=== PATIENT | female | born 1975 | race Caucasian/White ===

== ENCOUNTER 2020-10-12 12:39 | Outpatient (REF) | payer MEDICAID, SELFPAY | END 2020-10-12 12:40 | disposition home or self-care (01) | LOC: HO.LAB 12:39 | PROVIDERS: PCP Family Medicine; Visit Provider Family Medicine | DX: F19.10 Other psychoactive substance abuse, uncomplicated (principal) | CPT/HCPCS: 87040 ==

== ENCOUNTER 2020-10-15 22:03 | Emergency (ER) | payer MEDICAID, SELFPAY ==
[2020-10-15 22:06] VITALS: BP 146/65; PULSE 91; RESP 16; TEMP 36.6; O2SAT 97; BMI 25.8
--- NOTE | 2020-10-15 23:49 | ED_ITS ---
HPI - General Adult General Chief complaint: General Medical Stated complaint: Abnormal labs Time Seen by Provider: 10/15/20 22:23 Source: patient Mode of arrival: ambulatory Limitations: no limitations History of Present Illness HPI narrative: Patient comes to the emergency room requesting a workup for endocarditis. Patient states recently she was seen by her primary care physician, she was told that she has a new murmur. Patient is an active IV drug user. Patient states that she does not have any chest pain, no shortness of breath, no fever, although complaining of occasional chills. Patient states that she was also told that she may have lupus. Patient states that she had a butterfly like rash on her face, and is being worked up for lupus. At this time, her main concern is that she may have endocarditis. Patient states that the outpatient workup started, however due to insurance issues she was told by her primary care physician to come to the emergency room for workup. patient is currently taking doxycycline. Patient was diagnosed with an abscess a few weeks ago, did not finish the entire course of antibiotics, and had leftover doxycycline. Patient started a few days the old prescription of doxycycline, states her abscesses are improving and has not seen any drainage Related Data Previous Rx's Medication Instructions Recorded cephalexin [Keflex] 500 mg PO BID #20 cap 10/16/20 doxycycline hyclate 100 mg PO BID #20 cap 10/16/20 Allergies Allergy/AdvReac Type Severity Reaction Status Date / Time Penicillins [PENICILLINS] Allergy Intermediate HIVES Unverified 07/26/20 18:47 penicillin V Allergy Unknown rash Verified 03/27/16 00:00 sulfamethoxazole Allergy Unknown VOMITING Unverified 07/26/20 18:47 [From BACTRIM] trimethoprim [From BACTRIM] Allergy Unknown VOMITING Unverified 07/26/20 18:47 Review of Systems Review of Systems: Constitutional : No Weight loss, No Fever, No Chills, No Night Sweats, No Fatigue, No Malaise ENT/Mouth : No Hearing loss, No Ear Pain, No Nasal Congestion, No Sinus Pain, No Hoarseness, No sore throat, No Rhinorrhea, No Swallowing Difficulty Eyes: No Eye Pain, No Swelling, No Redness, No Foreign Body, No Discharge, No Vision Changes Cardiovascular : No Chest Pain, No SOB, No Dyspnea on Exertion, No Orthopnea, No Edema, No Palpitations, complaining of a new heart murmur Respiratory : No Cough, No Sputum, No Wheezing, No Smoke Exposure, No Dyspnea Gastrointestinal : No Nausea, No Vomiting, No Diarrhea, No Constipation, No abdominal Pain, No Hematochezia, No Melena Genitourinary : no irregular bleeding, No Dysuria, No Urinary Frequency, No Hematuria, No Urinary Incontinence, No Urgency, No Flank Pain, No Urinary Flow Changes, No Hesitancy Musculoskeletal : No joint pain, No Myalgias, No Joint Swelling Skin : multiple old and new skin lesions in upper and lower extremities Neuro : No Weakness, No Numbness, No Paresthesias, No Loss of Consciousness, No Dizziness, No Headache Psych : No Anxiety/Panic, No Depression, No SI/HI/AH/VH, No Social Issues, Heme/Lymph: No Bruising, No Bleeding,No Lymphadenopathy Endocrine : No Polyuria, No Polydipsia, No Temperature Intolerance PMFSH Past Medical History Medical History Hepatitis C IV drug user Surgical History (Updated 10/15/20 @ 22:08 by Luis Enrique Melendez) Hx of cholecystectomy Social History Social History Advance Directives: No Physical Exam Vital Signs: Vital Signs: Last Vital Signs Temp 97.9 F 10/16/20 02:50 Pulse 70 10/16/20 02:50 Resp 16 10/16/20 02:50 BP 127/70 10/16/20 02:50 Pulse Ox 98 10/16/20 02:50 Body Mass Index 25.8 Appearance: Alert. Oriented X3. No acute distress. Eyes: Pupils equal, round and reactive to light. ENT: Pharynx normal. Neck: Normal inspection. Neck supple. No lymph nodes noted. No crepitus CVS: Normal heart rate and rhythm. Pulses normal. Normal S1 and S2, very soft systolic murmur, barely noticeable. Respiratory: No respiratory distress. Breath sounds normal. No Wheezing. No rales Abdomen: Soft and nontender. No rigidity. No distention. good BS x4 Skin: Skin warm and dry. Multiple skin lesions in upper and lower extremities, several scratches in size, no defined abscesses that could be drained, no pus oozing of any of the skin lesions Extremities: No lower extremity edema. No lower extremity edema. No Lacerations. No Rash Neuro: Oriented X 3. No motor deficit. No sensory deficit. Moving all extermities. No slurred speech. Course Course Course Narrative: I discussed the labs with our hospitalist, at this time, patient does not have an elevated white blood cell count, does not have any fever, no symptoms. Echocardiogram can be set up as an outpatient through the patient is primary care physician. I offered a full course of antibiotics for the patient's abscesses, as mentioned above, none of them need to be drained at this time. Patient agreed with plan. I also discussed with the patient, that if her blood cultures return positive, she will need to return to the hospital for IV antibiotics, possible admission Medical Decision Making Lab Data Result diagrams: 10/16/20 02:00 10/16/20 02:00 Labs: Lab Results 10/16/20 10/16/20 10/16/20 Range/Units 02:00 02:00 02:00 WBC 7.8 (4.8-10.8) X10*3/uL RBC 4.36 (4.20-5.50) X10*6/uL Hgb 12.3 (12.0-16.0) g/dl Hct 37.4 (37-47) % MCV 85.8 (80-98) fL MCH 28.2 (27.0-33.0) pg MCHC 32.9 (31.0-35.0) g/dl RDW 13.2 (11.0-16.0) % Plt Count 311 (160-400) X10*3/uL MPV 8.1 L (9.4-12.3) fL Immature Gran % (Auto) 0.3 (0.0-0.4) % Neut % (Auto) 61.6 (45-73) % Lymph % (Auto) 31.2 (20-40) % [place] % (Auto) 5.2 (2-11) % Eos % (Auto) 1.3 (0-4) % Baso % (Auto) 0.4 (0-2) % Lymph # (Auto) 2.4 (1.2-4.9) X10*3/uL [place] # (Auto) 0.4 (0.1-1.2) X10*3/uL Eos # (Auto) 0.1 (0.0-0.4) X10*3/uL Baso # (Auto) 0.0 (0.0-0.2) X10*3/uL Abs Immat Gran (auto) 0.02 (0.00-0.03) X10*3/uL Absolute Neuts (auto) 4.8 (2.0-8.3) X10*3/uL Absolute Nucleated RBC 0.000 (0.0-0.012) X10*3/uL Nucleated RBC % (auto) 0.0 (0.0-0.2) /100WBC ESR (0-20) MM/HR Sodium 138 (135-145) mmol/L Potassium 4.0 (3.3-5.1) mmol/l Chloride 101 (96-108) mmol/L Carbon Dioxide 25 (22-29) mmol/L Anion Gap 16 (12-20) BUN 7 L (9-16) mg/dL Creatinine 0.73 (0.5-1.4) mg/dL Estim Creat Clear Calc 100.3 Estimated GFR > 60 Random Glucose 115 (60-115) mg/dL Lactic Acid 1.2 (0.5-2.0) mmol/L Calcium 9.1 (8.4-10.2) mg/dL Total Bilirubin 0.4 (0.0-1.0) mg/dL Direct Bilirubin < 0.2 (0.0-0.5) mg/dL AST 25 (5-31) U/L ALT 29 (0-31) U/L Alkaline Phosphatase 136 H (39-117) U/L C-Reactive Protein (< or = 0.50) mg/dL Total Protein 7.6 (6.5-8.0) g/dL Albumin 3.9 (3.5-5.0) g/dL 10/16/20 10/16/20 Range/Units 02:00 02:00 WBC (4.8-10.8) X10*3/uL RBC (4.20-5.50) X10*6/uL Hgb (12.0-16.0) g/dl Hct (37-47) % MCV (80-98) fL MCH (27.0-33.0) pg MCHC (31.0-35.0) g/dl RDW (11.0-16.0) % Plt Count (160-400) X10*3/uL MPV (9.4-12.3) fL Immature Gran % (Auto) (0.0-0.4) % Neut % (Auto) (45-73) % Lymph % (Auto) (20-40) % [place] % (Auto) (2-11) % Eos % (Auto) (0-4) % Baso % (Auto) (0-2) % Lymph # (Auto) (1.2-4.9) X10*3/uL [place] # (Auto) (0.1-1.2) X10*3/uL Eos # (Auto) (0.0-0.4) X10*3/uL Baso # (Auto) (0.0-0.2) X10*3/uL Abs Immat Gran (auto) (0.00-0.03) X10*3/uL Absolute Neuts (auto) (2.0-8.3) X10*3/uL Absolute Nucleated RBC (0.0-0.012) X10*3/uL Nucleated RBC % (auto) (0.0-0.2) /100WBC ESR 31 H (0-20) MM/HR Sodium (135-145) mmol/L Potassium (3.3-5.1) mmol/l Chloride (96-108) mmol/L Carbon Dioxide (22-29) mmol/L Anion Gap (12-20) BUN (9-16) mg/dL Creatinine (0.5-1.4) mg/dL Estim Creat Clear Calc Estimated GFR Random Glucose (60-115) mg/dL Lactic Acid (0.5-2.0) mmol/L Calcium (8.4-10.2) mg/dL Total Bilirubin (0.0-1.0) mg/dL Direct Bilirubin (0.0-0.5) mg/dL AST (5-31) U/L ALT (0-31) U/L Alkaline Phosphatase (39-117) U/L C-Reactive Protein 1.24 H (< or = 0.50) mg/dL Total Protein (6.5-8.0) g/dL Albumin (3.5-5.0) g/dL Discharge Plan Discharge Clinical Impression: Cardiac murmur Abscess of skin Qualifiers: Site of cutaneous abscess: unspecified site Qualified Code(s): L02.91 - Cutaneous abscess, unspecified Patient Disposition: Home, Self-Care Instructions: Heart Murmur (ED) Additional Instructions: you were seen today at [facility] for a new cardiac murmur. At this time, your lab work does not show any acute infection. Blood cultures are pending. You will need to follow-up with her primary care physician to be referred for an echocardiogram. Your blood cultures are pending. If you receive a phone call and they tell you that your blood culture is positive, please return to the emergency room Prescriptions: New doxycycline hyclate 100 mg capsule 100 mg PO BID Qty: 20 RF: 0 cephalexin [Keflex] 500 mg capsule 500 mg PO BID Qty: 20 RF: 0
--- NOTE | 2020-10-16 00:47 | PC.NURSE ---
patient returning to the emergency department, stating she left around 2250 and returned about 30 minutes ago to the waiting room. originally showing staff members a visitor wrist band then showing a patient one within a few minutes asking when her room would be ready. patient brought back to a room to be seen by provider.
--- NOTE | 2020-10-16 01:10 | ED.GENADULT ---
HPI - General Adult General Chief complaint: General Medical Stated complaint: Abnormal labs Time Seen by Provider: 10/15/20 22:23 Source: patient Mode of arrival: ambulatory Limitations: no limitations History of Present Illness HPI narrative: Patient comes emergency room requesting a workup for endocarditis. Patient states that at this time she has no fever, complaining of occasional chills. Patient states that her primary care physician informed the patient that she has a new murmur. The patient had an outpatient lab work done, however she was informed that due to her insurance it will take a longer time than usual, unclear history. Patient concerned with endocarditis. Patient also requesting a workup for lupus, patient states she has had a butterfly like rash on her face. patient states she has been having chills, no fever, no chest pain, no shortness of breath. patient is an active IV drug user. Patient admits to using heroin, injected earlier in the afternoon. Patient states that she is currently taking doxycycline for a skin abscess. Patient states a few weeks ago she was diagnosed with cellulitis /abscess, she was given doxycycline but she did not finish the entire course, so she had doxycycline left over from her previous prescription. complaint: Concerns of endocarditis Related Data Allergies Allergy/AdvReac Type Severity Reaction Status Date / Time Penicillins [PENICILLINS] Allergy Intermediate HIVES Unverified 07/26/20 18:47 penicillin V Allergy Unknown rash Verified 03/27/16 00:00 sulfamethoxazole Allergy Unknown VOMITING Unverified 07/26/20 18:47 [From BACTRIM] trimethoprim [From BACTRIM] Allergy Unknown VOMITING Unverified 07/26/20 18:47 PMFSH Past Medical History Medical History (Updated 10/15/20 @ 22:08 by Luis Enrique Melendez) Hepatitis C Surgical History (Updated 10/15/20 @ 22:08 by Luis Enrique Melendez) Hx of cholecystectomy Social History Social History Advance Directives: No Physical Exam Vital Signs: Vital Signs: Last Vital Signs Temp 98 F 10/15/20 22:06 Pulse 91 10/15/20 22:06 Resp 16 10/15/20 22:06 BP 146/65 H 10/15/20 22:06 Pulse Ox 97 10/15/20 22:06 Body Mass Index 25.8 Discharge Plan Discharge Patient Disposition: Left Without Being Seen
--- NOTE | 2020-10-16 02:05 | PC.NURSE ---
BLOOD CULTURES ARE VENOUS. WHEN AMENDING ON THE WORKLIST, COMPUTER STARTED GLITCHING. AND THEN ALL OF A SUDDEN THE AMENDED ORDER SAID ARTERIAL AND I WAS NOT ABLE TO CHANGE IT TO VENOUS. CALLED LAB TO MAKE THEM AWARE.
[2020-10-16 02:07] LABS: Basophils Percent Auto 0.4 % (0-2); Eosinophils Absolute Auto 0.1 X10*3/uL (0.0-0.4); Eosinophils Percent Auto 1.3 % (0-4); Hematocrit 37.4 % (37-47); Hemoglobin 12.3 g/dl (12.0-16.0); Imm Gran Abs Auto 0.02 X10*3/uL (0.00-0.03); Imm Gran Pct Auto 0.3 % (0.0-0.4); Lymphocytes Absolute Auto 2.4 X10*3/uL (1.2-4.9); Lymphocytes Percent Auto 31.2 % (20-40); MANUAL DIFF FLAG NO; Mean Corpuscular HGB Conc 32.9 g/dl (31.0-35.0); Mean Corpuscular Hemoglobin 28.2 pg (27.0-33.0); Mean Corpuscular Volume 85.8 fL (80-98); Mean Platelet Volume 8.1 fL (9.4-12.3); Monocytes Absolute Auto 0.4 X10*3/uL (0.1-1.2); Monocytes Percent Auto 5.2 % (2-11); Neutrophils Absolute Auto 4.8 X10*3/uL (2.0-8.3); Neutrophils Percent Auto 61.6 % (45-73); Platelet Count 311 X10*3/uL (160-400); Red Blood Count 4.36 X10*6/uL (4.20-5.50); Red Cell Distribution Width 13.2 % (11.0-16.0); White Blood Count 7.8 X10*3/uL (4.8-10.8)
[2020-10-16 02:31] LABS: Lactic Acid 1.2 mmol/L (0.5-2.0)
[2020-10-16 02:33] LABS: C Reactive Protein 1.24 mg/dL (< or = 0.50)
[2020-10-16 02:37] LABS: Alanine Aminotransferase 29 U/L (0-31); Albumin Level 3.9 g/dL (3.5-5.0); Alkaline Phosphatase 136 U/L (39-117); Anion Gap 16 (12-20); Aspartate Amino Transferase 25 U/L (5-31); Bilirubin Direct < 0.2 mg/dL (0.0-0.5); Bilirubin Total 0.4 mg/dL (0.0-1.0); Blood Urea Nitrogen 7 mg/dL (9-16); Calcium 9.1 mg/dL (8.4-10.2); Carbon Dioxide 25 mmol/L (22-29); Chloride 101 mmol/L (96-108); Creatinine Clr Calc Pharmacy 100.3; Estimated Glomerular Filt Rate > 60; Glucose Random 115 mg/dL (60-115); Sodium 138 mmol/L (135-145); Total Protein 7.6 g/dL (6.5-8.0)
[2020-10-16 02:43] LABS: Erythrocyte Sedimentation Rate 31 MM/HR (0-20)
[2020-10-16 02:50] VITALS: BP 127/70; PULSE 70; RESP 16; TEMP 36.6; O2SAT 98
[2020-10-16 03:30] LABS: Appearance Urine CLEAR; Color Urine YELLOW; Glucose Urine UA NEG (NEG); Leukocyte Esterase Urine NEG (NEG); Nitrite Urine NEG (NEG); PH 7.5 (5.0-8.0); Specific Gravity - Urine 1.015 (1.005-1.025); UACC Culture Trigger NO; Urine Blood NEG (NEG); Urine Ketones NEG (NEG); Urine Protein NEG (NEG-TRACE)
[2020-10-16 03:31] LABS: UPreg QC Valid YES; Urine Pregnancy NEGATIVE (NEGATIVE)
[2020-10-16 03:43] LABS: Amphetamine Screen Urine Not Detected (Not Detect); Barbiturates, Urine Not Detected (Not Detect); Benzodiazepines Screen Urine Not Detected (Not Detect); Cannabinoid Screen Urine Not Detected (Not Detect); Cocaine Screen Urine Not Detected (Not Detect); Opiate Screen Urine POSITIVE (Not Detect); Phencyclidine Screen Urine Not Detected (Not Detect)
== END 2020-10-16 04:20 | disposition home or self-care (01) ==
PROVIDERS: Emergency Provider Emergency Medicine
DX: L02.91 Cutaneous abscess, unspecified (principal); R01.1 Cardiac murmur, unspecified; F11.10 Opioid abuse, uncomplicated; Z79.899 Other long term (current) drug therapy
CPT/HCPCS: 36415; 80048; 80076; 80307; 81003; 81025; 83605; 85025; 85652; 86140; 87040; 96374; 99284

== ENCOUNTER 2021-01-19 22:39 | Emergency (ER) | payer MEDICAID, SELFPAY ==
[2021-01-19 22:51] VITALS: BP 160/101; PULSE 114; RESP 20; O2SAT 100; BMI 24.2
--- NOTE | 2021-01-19 23:44 | ED.GENADULT ---
HPI - General Adult General Chief complaint: Skin/Abscess/Foreign Body Stated complaint: Abdominal pain Time Seen by Provider: 01/19/21 22:44 Source: patient Mode of arrival: ambulatory History of Present Illness HPI narrative: This is a 45-year-old female who presents with a few days of worsening itching and concerns of bugs on her bilateral upper extremities but denies any associated fevers, chills. Related Data Previous Rx's Medication Instructions Recorded cephalexin [Keflex] 500 mg PO BID #20 cap 10/16/20 doxycycline hyclate 100 mg PO BID #20 cap 10/16/20 permethrin 1 appl TOPICAL Q14D #60 g 01/19/21 Allergies Allergy/AdvReac Type Severity Reaction Status Date / Time Penicillins [PENICILLINS] Allergy Intermediate HIVES Unverified 07/26/20 18:47 penicillin V Allergy Unknown rash Verified 03/27/16 00:00 sulfamethoxazole Allergy Unknown VOMITING Unverified 07/26/20 18:47 [From BACTRIM] trimethoprim [From BACTRIM] Allergy Unknown VOMITING Unverified 07/26/20 18:47 Review of Systems Review of Systems: Pertinent positives and negatives as stated in HPI and 10 point review of systems is otherwise negative. PMFSH Past Medical History Source: nursing notes reviewed Medical History Hepatitis C IV drug user Surgical History Hx of cholecystectomy Social History Social History Alcohol intake: never Smoking Status: Current every day smoker Use of substances other than those prescribed or required for medical reasons: No Advance Directives: No Advance Directives Information Provided: Yes Physical Exam Vital Signs: Vital Signs: Last Vital Signs Pulse 114 H 01/19/21 22:51 Resp 20 01/19/21 22:51 BP 160/101 H 01/19/21 22:51 Pulse Ox 100 01/19/21 22:51 Body Mass Index 24.2 VITAL SIGNS: Reviewed. GENERAL: Well developed, well nourished, in no acute distress. HEAD: Normocephalic/atraumatic, EYES: PERRLA, EOMI EARS: Ext canals without abnormality, TMs non-bulging and non-erythematous NOSE: Nares patent bilateral OROPHARYNX: no oral lesions noted, posterior pharynx clear NECK: Supple, no adenopathy LUNGS: Normal breath sounds. No adventitious sounds or accessory muscle use. SpO2<100> CARDIOVASCULAR: Regular rate and rhythm without noted murmurs ABDOMEN: Soft, non-tender, non-distended with bowel sounds. MUSCULOSKELETAL: No tenderness, deformities, or effusions noted on gross inspection. EXTREMITIES: No cyanosis, clubbing or edema. SKIN: Inspection of the skin reveals multiple areas healing scabs to include any intrigenous areas of bilateral hands, no abscesses noted on either bilateral upper extremity or abdominal wall. NEUROLOGIC: Alert and oriented x 4. Course Course Course Narrative: This is a 45-year-old female with possible scabies versus skin picking secondary to drug use. Provided patient with a dose of Benadryl as well as a prescription for permethrin. Patient was encouraged to return if her symptoms did not improve. Discharge Plan Discharge Clinical Impression: IV drug user Insect bites Qualifiers: Encounter type: initial encounter Site of insect bite: unspecified site Qualified Code(s): W57.XXXA - Bitten or stung by nonvenomous insect and other nonvenomous arthropods, initial encounter Patient Disposition: Home, Self-Care Instructions: Insect Bite or Sting (ED), Scabies (ED) Additional Instructions: Return to the emergency department if you experience any acute worsening of your symptoms. Prescriptions: New permethrin 5 % cream 1 appl topical Q14D Qty: 60 RF: 0 No Action doxycycline hyclate 100 mg capsule 100 mg PO BID Qty: 20 RF: 0 cephalexin [Keflex] 500 mg capsule 500 mg PO BID Qty: 20 RF: 0
[2021-01-19] MEDS: diphenhydrAMINE HCL 25 MG TABLET 50 MG PO (23:59)
== END 2021-01-19 23:56 | disposition home or self-care (01) ==
PROVIDERS: Emergency Provider Student in an Organized Health Care Education/Training Program
DX: F11.90 Opioid use, unspecified, uncomplicated (principal); S60.562A Insect bite (nonvenomous) of left hand, initial encounter; S60.561A Insect bite (nonvenomous) of right hand, initial encounter; W57.XXXA Bitten or stung by nonvenomous insect and other nonvenomous arthropods, initial encounter; F17.200 Nicotine dependence, unspecified, uncomplicated; Y93.9 Activity, unspecified; Y92.039 Unspecified place in apartment as the place of occurrence of the external cause; Y99.9 Unspecified external cause status; Z86.19 Personal history of other infectious and parasitic diseases; Z90.49 Acquired absence of other specified parts of digestive tract
CPT/HCPCS: 99283; 99284; Q0163

== ENCOUNTER 2021-04-11 21:20 | Emergency (ER) | payer MEDICAID, SELFPAY ==
--- NOTE | ~2021-04-11 | CT_ITS ---
EXAMINATION: CT SOFT TISSUE NECK WITH CONTRAST CLINICAL INFORMATION: Swelling/pain right ear and along sternocleidomastoid and TMJ COMPARISON: None TECHNIQUE: Following the intravenous administration of 60 mL of Omnipaque 350 intravenous contrast, helical imaging was performed in the axial plane with generation of coronal and sagittal reformatted images. This CT examination was performed using dose optimization techniques as appropriate, variously including the following: *Automated exposure control *Adjustment of mA and/or kV according to patient size (this includes techniques or standardized protocols for targeted exams where dose is matched to indication/reason for exam; i.e. extremities or head) *Use of iterative reconstruction technique DLP: 392 mGy-cm FINDINGS: There is soft tissue thickening along the right external auditory canal with adjacent subcutaneous fat stranding. Small amount of fluid noted in the right middle ear cavity. Mastoid air cells are well-aerated. There are a few prominent upper right cervical lymph nodes which may be reactive in this setting. There is subtle haziness of the right parapharyngeal fat. The parotid glands are homogeneous in attenuation. The submandibular glands are normal. No contour abnormality or pathologic enhancement is seen within the oral cavity or pharyngeal mucosal space. The laryngeal structures are normal. The parapharyngeal fat is preserved. The carotid sheath vasculature opacify normally. No extra mucosal soft tissue mass or fluid collection is seen. No retropharyngeal fluid collection is seen. The thyroid gland is unremarkable. Small right-sided tracheal diverticulum is noted. The lung apices are clear. The visualized portions of the paranasal sinuses are well-aerated. The temporomandibular joints are normal. No osseous abnormalities are seen. The imaged portions of the brain parenchyma are unremarkable. CT/CT soft tissue neck w con IMPRESSION: Soft tissue thickening along the right external auditory canal, suspicious for otitis externa. Mastoid air cells are well-aerated. Small amount of fluid noted in the middle ear cavity. Few prominent upper right cervical lymph nodes are favored to be reactive in this setting.
[2021-04-11 21:31] VITALS: BP 145/92; PULSE 88; RESP 18; TEMP 36.7; O2SAT 100; BMI 22.6
--- NOTE | 2021-04-11 23:37 | ED.EAR ---
HPI - Ear Problem General Chief complaint: Ear Problems Stated complaint: ear pain Time Seen by Provider: 04/12/21 00:19 Related Data Previous Rx's Medication Instructions Recorded cephalexin [Keflex] 500 mg PO BID #20 cap 10/16/20 doxycycline hyclate 100 mg PO BID #20 cap 10/16/20 permethrin 1 appl TOPICAL Q14D #60 g 01/19/21 Allergies Allergy/AdvReac Type Severity Reaction Status Date / Time Penicillins [PENICILLINS] Allergy Intermediate HIVES Verified 04/11/21 21:30 penicillin V Allergy Unknown rash Verified 04/11/21 21:30 sulfamethoxazole Allergy Unknown VOMITING Verified 04/11/21 21:30 [From BACTRIM] trimethoprim [From BACTRIM] Allergy Unknown VOMITING Verified 04/11/21 21:30 PMFSH Past Medical History Medical History Hepatitis C IV drug user Surgical History Hx of cholecystectomy Social History Social History Alcohol intake: never Patient : No Physical Exam Vital Signs: Vital Signs: Last Vital Signs Temp 98.0 F 04/11/21 21:31 Pulse 88 04/11/21 21:31 Resp 18 04/11/21 21:31 BP 145/92 H 04/11/21 21:31 Pulse Ox 100 04/11/21 21:31 Body Mass Index 22.6 Discharge Plan Discharge Prescriptions: No Action permethrin 5 % cream 1 appl topical Q14D Qty: 60 RF: 0 doxycycline hyclate 100 mg capsule 100 mg PO BID Qty: 20 RF: 0 cephalexin [Keflex] 500 mg capsule 500 mg PO BID Qty: 20 RF: 0
--- NOTE | 2021-04-12 00:26 | PC.NURSE ---
Pt very lethargic resting on stretcher but easily arousable to verbal stimuli. Pt admits to heroin use, denies other drugs and ETOH. Pt oriented x 4.
[2021-04-12 01:29] LABS: MANUAL DIFF FLAG NO
[2021-04-12 01:30] LABS: Basophils Percent Auto 0.1 % (0-2); Eosinophils Percent Auto 0.5 % (0-4); Hematocrit 34.8 % (37-47); Hemoglobin 11.7 g/dl (12.0-16.0); Imm Gran Abs Auto 0.02 X10*3/uL (0.00-0.03); Imm Gran Pct Auto 0.3 % (0.0-0.4); Lymphocytes Absolute Auto 1.2 X10*3/uL (1.2-4.9); Lymphocytes Percent Auto 15.2 % (20-40); Mean Corpuscular HGB Conc 33.6 g/dl (31.0-35.0); Mean Corpuscular Hemoglobin 28.8 pg (27.0-33.0); Mean Corpuscular Volume 85.7 fL (80-98); Mean Platelet Volume 8.9 fL (9.4-12.3); Monocytes Absolute Auto 0.4 X10*3/uL (0.1-1.2); Monocytes Percent Auto 5.1 % (2-11); Neutrophils Absolute Auto 6.2 X10*3/uL (2.0-8.3); Neutrophils Percent Auto 78.8 % (45-73); Platelet Count 240 X10*3/uL (160-400); Red Blood Count 4.06 X10*6/uL (4.20-5.50); Red Cell Distribution Width 13.8 % (11.0-16.0); White Blood Count 7.8 X10*3/uL (4.8-10.8)
[2021-04-12 01:50] LABS: Lactic Acid 0.9 mmol/L (0.5-2.0)
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
[2021-04-12 02:21] LABS: Alanine Aminotransferase 109 U/L (0-31); Albumin Level 4.2 g/dL (3.5-5.0); Alkaline Phosphatase 234 U/L (39-117); Anion Gap 16 (12-20); Aspartate Amino Transferase 88 U/L (5-31); Bilirubin Total 0.6 mg/dL (0.0-1.0); Blood Urea Nitrogen 8 mg/dL (9-16); Calcium 9.1 mg/dL (8.4-10.2); Carbon Dioxide 26 mmol/L (22-29); Chloride 100 mmol/L (96-108); Creatinine Clr Calc Pharmacy 96.3; Estimated Glomerular Filt Rate > 60; Glucose Random 105 mg/dL (60-115); Potassium 4.6 mmol/L (3.3-5.1); Sodium 137 mmol/L (135-145); Total Protein 7.5 g/dL (6.5-8.0)
[2021-04-12 03:11] VITALS: BP 98/58; PULSE 70; RESP 14; O2SAT 99
[2021-04-12] MEDS: cefTRIAXone sodium 1 GM in 0.9 % Sodium Chloride 50 ML IV (03:57)
[2021-04-12 05:00] VITALS: BP 110/70; PULSE 78; RESP 18; O2SAT 98
[2021-04-12] MEDS: Ketorolac Tromethamine 15 MG/ML VIAL IVPUSH (05:00)
[2021-04-12] MEDS: Acetaminophen 325 MG TABLET 975 MG PO (05:01)
== END 2021-04-12 05:11 | disposition home or self-care (01) ==
PROVIDERS: Emergency Provider Student in an Organized Health Care Education/Training Program
DX: H60.91 Unspecified otitis externa, right ear (principal); H92.01 Otalgia, right ear; F19.10 Other psychoactive substance abuse, uncomplicated; R53.83 Other fatigue; B19.20 Unspecified viral hepatitis C without hepatic coma
CPT/HCPCS: 36415; 70491; 80053; 83605; 85025; 87040; 96365; 96374; 96375; 99284; J0696; J1885

== ENCOUNTER 2023-01-09 14:18 | Inpatient (IN) | payer MEDICAID, OTHER, SELFPAY ==
[2023-01-09 14:34] VITALS: BP 122/77; BP 132/92; PULSE 102; PULSE 98; RESP 18; TEMP 36.4; O2SAT 96; BMI 25.8
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
--- NOTE | 2023-01-09 14:42 | PC.NURSE ---
Attempted to verify methadone dose at [facility] in [facility]. . Message left for return call.
--- NOTE | 2023-01-09 14:56 | PC.NURSE ---
Call back from Midwife Practitioner: Odette Betts Pt got 30mg PO of methadone at 1014am on 01/09/23.
[2023-01-09 15:23] LABS: Amphetamine Screen Urine Not Detected (Not Detect); Barbiturates, Urine Not Detected (Not Detect); Benzodiazepines Screen Urine POSITIVE (Not Detect); Cannabinoid Screen Urine Not Detected (Not Detect); Cocaine Screen Urine POSITIVE (Not Detect); Fentanyl, urine POSITIVE (Not Detect); Opiate Screen Urine POSITIVE (Not Detect); Phencyclidine Screen Urine Not Detected (Not Detect)
--- NOTE | 2023-01-09 15:23 | ED.PSYCH ---
HPI - Psych General Chief Complaint: Psychiatric Symptoms <Betsy MayberryCHRISTINA - Last Filed: 01/09/23 21:08> Stated Complaint: SEC 12, from home, auditory/visual halluc per EMS <Betsy GaoCHRISTNIA walker - Last Filed: 01/09/23 21:08> Time Seen by Provider: 01/09/23 14:55 <Betsy Nelson CHRISTINA Mayberry - Last Filed: 01/09/23 21:08> Source: patient <Betsy MayberryCHRISTINA - Last Filed: 01/09/23 21:08> Mode of arrival: EMS <Betsy MayberryCHRISTINA - Last Filed: 01/09/23 21:08> Limitations: no limitations <Betsy MayberryCHRISTINA - Last Filed: 01/09/23 21:08> History of Present Illness HPI Narrative: Patient is a 47-year-old female who presents to the emergency department via EMS on a Section 12 from [facility] in the community. Patient has reportedly been manic, sleeping in in on heated storage unit at night, she has been experiencing hallucinations which she describes as seeing eyes on the floor that turned into snakes that are following her around her house. She denies suicidal or homicidal ideations. She denies any alcohol usage. There was also concern of skin infection to the bilateral arms secondary to IV heroin usage. When asked, patient states that this has been present to her arms for 2 years. She does report a subjective fever 2 days ago. Denies shaking chills, chest pain, shortness of breath, difficulty breathing, nausea, vomiting, abdominal pain, genitourinary symptoms, possibility of . <Betsy Nleson CHRISTINA Mayberry - Last Filed: 01/09/23 21:08> Related Data Home Medications: Home Medications Medication Instructions Recorded Confirmed methadone 30 mg PO DAILY 01/09/23 01/09/23 <Betsy Leslieliseth Mayberry CNP - Last Filed: 01/09/23 21:08> Allergies/Adverse Reactions: Allergies Allergy/AdvReac Type Severity Reaction Status Date / Time Penicillins [PENICILLINS] Allergy Intermediate HIVES Verified 04/11/21 21:30 penicillin V Allergy Unknown rash Verified 04/11/21 21:30 sulfamethoxazole Allergy Unknown VOMITING Verified 04/11/21 21:30 [From BACTRIM] trimethoprim [From BACTRIM] Allergy Unknown VOMITING Verified 04/11/21 21:30 <Betsy Mayberry CNP - Last Filed: 01/09/23 21:08> Review of Systems Review of Systems: Yes all other systems are reviewed and are negative <Betsy Mayberry CNP - Last Filed: 01/09/23 21:08> [facility] Past Medical History Attestation statement: The following information was validated with the patient. <Betsy Mayberry CNP - Last Filed: 01/09/23 21:08> Source: old records reviewed <Betsy Mayberry CNP - Last Filed: 01/09/23 21:08> Medical History: Medical History Hepatitis C IV drug user <Betsy Mayberry CNP - Last Filed: 01/09/23 21:08> Surgical History: Surgical History Hx of cholecystectomy <Betsy Mayberry CNP - Last Filed: 01/09/23 21:08> Social History Social History: Social History Alcohol intake: never Advance Directives: No Advance Directives Information Provided: Yes <Betsy Mayberry CNP - Last Filed: 01/09/23 21:08> Physical Exam Vital Signs: Vital Signs: Last Vital Signs Temp 97.6 F 01/10/23 06:01 Pulse 86 01/10/23 06:01 Resp 16 01/10/23 06:01 BP 120/61 01/10/23 06:01 Pulse Ox 96 01/10/23 06:01 O2 Del Method 01/10/23 06:01 BMI result Body Mass Index 25.8 <Betsy Mayberry CNP - Last Filed: 01/09/23 21:08> Vital Signs: Last Vital Signs Temp 97.6 F 01/10/23 06:01 Pulse 86 01/10/23 06:01 Resp 16 01/10/23 06:01 BP 120/61 01/10/23 06:01 Pulse Ox 96 01/10/23 06:01 O2 Del Method 01/10/23 06:01 BMI result Body Mass Index 25.8 <Radha Marte MD - Last Filed: 01/10/23 08:32> Appearance: Alert.?Oriented to person, place and time. No acute distress.?Normal affect. Eyes: Pupils equal, round and reactive to light.? ENT: Pharynx normal.?? Neck: Normal inspection.? Neck supple.?? CVS: Heart sounds normal. Tachycardia.? Pulses normal.?? Respiratory: No respiratory distress.? Lung sounds clear to auscultation bilaterally?? Abdomen: Soft and non-tender. Normoactive bowel sounds. Skin: Skin warm and dry.? Normal skin color.? Extremities: No lower extremity edema.? No calf ttp? Neuro: Moves all extremities spontaneously. Sensation intact bilaterally. CN II-XII intact. No focal neuro deficits. Ambulates with normal steady gait. <Betsy Mayberry CNP - Last Filed: 01/09/23 21:08> Course Reevaluation(s) Reevaluation #1: Lactic acid is within normal limits, CMP is overall unremarkable. Drug abuse screen positive for opiates, fentanyl, benzodiazepines, cocaine. CBC was not drawn previously, spoke with RN, staff obtaining at this time. <Betsy Mayberry CNP - Last Filed: 01/09/23 21:08> Time: 19:46 <Betsy Mayberry CNP - Last Filed: 01/09/23 21:08> Reevaluation #2: CBC reveals no leukocytosis, normocytic anemia that does not meet transfusion criteria. Antibiotics ordered accordingly for cellulitis of the bilateral arms. Patient will be placed in physician observation, the reason for observation being additional time was required for inpatient bed search to ensue. She is calm and cooperative at this time, no apparent distress. <Betsy Mayberry CNP - Last Filed: 01/09/23 21:08> Time: 21:02 <Betsy Mayberry CNP - Last Filed: 01/09/23 21:08> Reevaluation #3: Patient is under physician observation, Section 12, bed search is underway, no events overnight reported by the nurse, continue with physician observation. <Radha Marte MD - Last Filed: 01/10/23 08:32> Time: 08:32 <Radha Marte MD - Last Filed: 01/10/23 08:32> Medications Administered Generic Name Dose Route Start Last Admin Trade Name Freq PRN Reason Stop Dose Admin Cephalexin HCl 500 mg 01/09/23 21:00 01/09/23 20:30 Cephalexin 500 Mg Capsule PO 500 mg QID AMARI Administration Discontinued Medications Generic Name Dose Route Start Last Admin Trade Name Freq PRN Reason Stop Dose Admin Cephalexin HCl 500 mg 01/09/23 15:27 01/09/23 16:37 Cephalexin 500 Mg Capsule PO 01/09/23 15:28 500 mg ONCE ONE Administration Doxycycline Monohydrate 100 mg 01/09/23 15:27 01/09/23 16:37 Doxycycline Monohydrate 100 Mg Capsule PO 01/09/23 15:28 100 mg ONCE ONE Administration <Betsy Mayberry CNP - Last Filed: 01/09/23 21:08> Medications Administered Generic Name Dose Route Start Last Admin Trade Name Freq PRN Reason Stop Dose Admin Cephalexin HCl 500 mg 01/09/23 21:00 01/09/23 20:30 Cephalexin 500 Mg Capsule PO 500 mg QID AMARI Administration Discontinued Medications Generic Name Dose Route Start Last Admin Trade Name Freq PRN Reason Stop Dose Admin Cephalexin HCl 500 mg 01/09/23 15:27 01/09/23 16:37 Cephalexin 500 Mg Capsule PO 01/09/23 15:28 500 mg ONCE ONE Administration Doxycycline Monohydrate 100 mg 01/09/23 15:27 01/09/23 16:37 Doxycycline Monohydrate 100 Mg Capsule PO 01/09/23 15:28 100 mg ONCE ONE Administration <Radha Marte MD - Last Filed: 01/10/23 08:32> Medical Decision Making Medical Decision Making MDM Narrative: Patient is a 47-year-old female who presents emergency department on a Section 12 from the community. Right arm with scabbed wounds and mild surrounding erythema on the elbow, limited extension of elbow past 90 degrees secondary to scarred tissue over elbow/ antecubital fossa. Left arm also with decreased AROM to the elbow, extension limited to just beyond 90 degrees secondary to contracture of scar tissue over elbow/ antecubital fossa, scabbed wounds present to the elbow with mild surrounding erythema, left deltoid muscle with induration and scabbed lesion, no fluctuance or active purulent drainage, left lateral biceps with a area of erythema, induration, no fluctuance abscesses palpable that would be amenable to incision and drainage at this time. She is mildly tachycardic, had a reported fever 2 days ago, currently is afebrile, does not meet sirs criteria, she is an IV drug user, will obtain labs including lactic acid and blood cultures at this time. Discussed this case with ED attending, Dr. Prince, at this time will cover with oral cephalexin and doxycycline. <Betsy Mayberry CNP - Last Filed: 01/09/23 21:08> Differential Diagnosis Differential Diagnoses: The differential diagnosis associated with the presentation includes (Delirium, substance use disorder, cellulitis, abscess, bacteremia, schizophrenia, bipolar disorder) <Betsy Mayberry CNP - Last Filed: 01/09/23 21:08> Admission/Observation Consideration of admission/observation: Escalation of care including admission/observation considered <Betsy Mayberry CNP - Last Filed: 01/09/23 21:08> Lab Data MDM Lab Attestation statement: I reviewed the patient's lab results. <Betsy Mayberry CNP - Last Filed: 01/09/23 21:08> Result Diagrams: 01/09/23 16:26 <Betsy Mayberry CNP - Last Filed: 01/09/23 21:08> Labs: Lab Results 01/09/23 01/09/23 01/09/23 Range/Units 15:04 15:04 16:26 WBC (4.8-10.8) X10*3/uL RBC (4.20-5.50) X10*6/uL Hgb (12.0-16.0) g/dl Hct (37.0-47.0) % MCV (80.0-98.0) fL MCH (27.0-33.0) pg MCHC (31.0-35.0) g/dl RDW (11.0-16.0) % Plt Count (160-400) X10*3/uL MPV (9.4-12.3) fL Immature Gran % (Auto) (0.0-0.4) % Neut % (Auto) (45-73) % Lymph % (Auto) (20-40) % Nicholas % (Auto) (2-11) % Eos % (Auto) (0-4) % Baso % (Auto) (0-2) % Lymph # (Auto) (1.2-4.9) X10*3/uL Nicholas # (Auto) (0.1-1.2) X10*3/uL Eos # (Auto) (0.0-0.4) X10*3/uL Baso # (Auto) (0.0-0.2) X10*3/uL Abs Immat Gran (auto) (0.00-0.03) X10*3/uL Absolute Neuts (auto) (2.0-8.3) x10*3/uL Absolute Nucleated RBC (0.0-0.012) X10*3/uL Nucleated RBC % (auto) (0.0-0.2) /100WBC Sodium 140 (135-145) mmol/L Potassium 4.7 (3.3-5.1) mmol/L Chloride 101 (96-108) mmol/L Carbon Dioxide 30 H (22-29) mmol/L Anion Gap 14 (12-20) BUN 9 (9-16) mg/dL Creatinine 0.67 (0.5-1.4) mg/dL Estim Creat Clear Calc 106.9 Estimated GFR > 60 Random Glucose 80 (60-115) mg/dL Lactic Acid (0.5-2.0) mmol/L Calcium 9.2 (8.4-10.2) mg/dL Total Bilirubin 0.3 (0.0-1.0) mg/dL AST 19 (5-31) U/L ALT 17 (0-31) U/L Alkaline Phosphatase 204 H (39-117) U/L Total Protein 7.8 (6.5-8.0) g/dL Albumin 3.8 (3.5-5.0) g/dL Urine Opiates Screen POSITIVE H (Not Detect) Urine Fentanyl Screen POSITIVE H (Not Detect) Ur Barbiturates Screen Not Detected (Not Detect) Ur Phencyclidine Scrn Not Detected (Not Detect) Ur Amphetamines Screen Not Detected (Not Detect) U Benzodiazepines Scrn POSITIVE H (Not Detect) Urine Cocaine Screen POSITIVE H (Not Detect) U Marijuana (THC) Screen Not Detected (Not Detect) COVID-19 (JENNIFER) Negative (Negative) COVID-19 Clin Com See Note 01/09/23 01/09/23 Range/Units 16:26 20:26 WBC 7.4 (4.8-10.8) X10*3/uL RBC 3.73 L (4.20-5.50) X10*6/uL Hgb 10.3 L (12.0-16.0) g/dl Hct 30.1 L (37.0-47.0) % MCV 80.7 (80.0-98.0) fL MCH 27.6 (27.0-33.0) pg MCHC 34.2 (31.0-35.0) g/dl RDW 13.2 (11.0-16.0) % Plt Count 301 (160-400) X10*3/uL MPV 8.2 L (9.4-12.3) fL Immature Gran % (Auto) 0.0 (0.0-0.4) % Neut % (Auto) 63.5 (45-73) % Lymph % (Auto) 23.0 (20-40) % Nicholas % (Auto) 8.6 (2-11) % Eos % (Auto) 2.7 (0-4) % Baso % (Auto) 5.0 H (0-2) % Lymph # (Auto) 2.0 (1.2-4.9) X10*3/uL Nicholas # (Auto) 0.8 (0.1-1.2) X10*3/uL Eos # (Auto) 0.2 (0.0-0.4) X10*3/uL Baso # (Auto) 0.0 (0.0-0.2) X10*3/uL Abs Immat Gran (auto) 0.00 (0.00-0.03) X10*3/uL Absolute Neuts (auto) 5.6 (2.0-8.3) x10*3/uL Absolute Nucleated RBC 0.050 H (0.0-0.012) X10*3/uL Nucleated RBC % (auto) 0.7 H (0.0-0.2) /100WBC Sodium (135-145) mmol/L Potassium (3.3-5.1) mmol/L Chloride (96-108) mmol/L Carbon Dioxide (22-29) mmol/L Anion Gap (12-20) BUN (9-16) mg/dL Creatinine (0.5-1.4) mg/dL Estim Creat Clear Calc Estimated GFR Random Glucose (60-115) mg/dL Lactic Acid 0.9 (0.5-2.0) mmol/L Calcium (8.4-10.2) mg/dL Total Bilirubin (0.0-1.0) mg/dL AST (5-31) U/L ALT (0-31) U/L Alkaline Phosphatase (39-117) U/L Total Protein (6.5-8.0) g/dL Albumin (3.5-5.0) g/dL Urine Opiates Screen (Not Detect) Urine Fentanyl Screen (Not Detect) Ur Barbiturates Screen (Not Detect) Ur Phencyclidine Scrn (Not Detect) Ur Amphetamines Screen (Not Detect) U Benzodiazepines Scrn (Not Detect) Urine Cocaine Screen (Not Detect) U Marijuana (THC) Screen (Not Detect) COVID-19 (JENNIFER) (Negative) COVID-19 Clin Com <Betsy Mayberry, CLUB MANAGER - Last Filed: 01/09/23 21:08> Lab Results 01/09/23 01/09/23 01/09/23 Range/Units 15:04 15:04 16:26 WBC (4.8-10.8) X10*3/uL RBC (4.20-5.50) X10*6/uL Hgb (12.0-16.0) g/dl Hct (37.0-47.0) % MCV (80.0-98.0) fL MCH (27.0-33.0) pg MCHC (31.0-35.0) g/dl RDW (11.0-16.0) % Plt Count (160-400) X10*3/uL MPV (9.4-12.3) fL Immature Gran % (Auto) (0.0-0.4) % Neut % (Auto) (45-73) % Lymph % (Auto) (20-40) % Nicholas % (Auto) (2-11) % Eos % (Auto) (0-4) % Baso % (Auto) (0-2) % Lymph # (Auto) (1.2-4.9) X10*3/uL Nicholas # (Auto) (0.1-1.2) X10*3/uL Eos # (Auto) (0.0-0.4) X10*3/uL Baso # (Auto) (0.0-0.2) X10*3/uL Abs Immat Gran (auto) (0.00-0.03) X10*3/uL Absolute Neuts (auto) (2.0-8.3) x10*3/uL Absolute Nucleated RBC (0.0-0.012) X10*3/uL Nucleated RBC % (auto) (0.0-0.2) /100WBC Sodium 140 (135-145) mmol/L Potassium 4.7 (3.3-5.1) mmol/L Chloride 101 (96-108) mmol/L Carbon Dioxide 30 H (22-29) mmol/L Anion Gap 14 (12-20) BUN 9 (9-16) mg/dL Creatinine 0.67 (0.5-1.4) mg/dL Estim Creat Clear Calc 106.9 Estimated GFR > 60 Random Glucose 80 (60-115) mg/dL Lactic Acid (0.5-2.0) mmol/L Calcium 9.2 (8.4-10.2) mg/dL Total Bilirubin 0.3 (0.0-1.0) mg/dL AST 19 (5-31) U/L ALT 17 (0-31) U/L Alkaline Phosphatase 204 H (39-117) U/L Total Protein 7.8 (6.5-8.0) g/dL Albumin 3.8 (3.5-5.0) g/dL Urine Opiates Screen POSITIVE H (Not Detect) Urine Fentanyl Screen POSITIVE H (Not Detect) Ur Barbiturates Screen Not Detected (Not Detect) Ur Phencyclidine Scrn Not Detected (Not Detect) Ur Amphetamines Screen Not Detected (Not Detect) U Benzodiazepines Scrn POSITIVE H (Not Detect) Urine Cocaine Screen POSITIVE H (Not Detect) U Marijuana (THC) Screen Not Detected (Not Detect) COVID-19 (JENNIFER) Negative (Negative) COVID-19 Clin Com See Note 01/09/23 01/09/23 Range/Units 16:26 20:26 WBC 7.4 (4.8-10.8) X10*3/uL RBC 3.73 L (4.20-5.50) X10*6/uL Hgb 10.3 L (12.0-16.0) g/dl Hct 30.1 L (37.0-47.0) % MCV 80.7 (80.0-98.0) fL MCH 27.6 (27.0-33.0) pg MCHC 34.2 (31.0-35.0) g/dl RDW 13.2 (11.0-16.0) % Plt Count 301 (160-400) X10*3/uL MPV 8.2 L (9.4-12.3) fL Immature Gran % (Auto) 0.0 (0.0-0.4) % Neut % (Auto) 63.5 (45-73) % Lymph % (Auto) 23.0 (20-40) % Nicholas % (Auto) 8.6 (2-11) % Eos % (Auto) 2.7 (0-4) % Baso % (Auto) 5.0 H (0-2) % Lymph # (Auto) 2.0 (1.2-4.9) X10*3/uL Nicholas # (Auto) 0.8 (0.1-1.2) X10*3/uL Eos # (Auto) 0.2 (0.0-0.4) X10*3/uL Baso # (Auto) 0.0 (0.0-0.2) X10*3/uL Abs Immat Gran (auto) 0.00 (0.00-0.03) X10*3/uL Absolute Neuts (auto) 5.6 (2.0-8.3) x10*3/uL Absolute Nucleated RBC 0.050 H (0.0-0.012) X10*3/uL Nucleated RBC % (auto) 0.7 H (0.0-0.2) /100WBC Sodium (135-145) mmol/L Potassium (3.3-5.1) mmol/L Chloride (96-108) mmol/L Carbon Dioxide (22-29) mmol/L Anion Gap (12-20) BUN (9-16) mg/dL Creatinine (0.5-1.4) mg/dL Estim Creat Clear Calc Estimated GFR Random Glucose (60-115) mg/dL Lactic Acid 0.9 (0.5-2.0) mmol/L Calcium (8.4-10.2) mg/dL Total Bilirubin (0.0-1.0) mg/dL AST (5-31) U/L ALT (0-31) U/L Alkaline Phosphatase (39-117) U/L Total Protein (6.5-8.0) g/dL Albumin (3.5-5.0) g/dL Urine Opiates Screen (Not Detect) Urine Fentanyl Screen (Not Detect) Ur Barbiturates Screen (Not Detect) Ur Phencyclidine Scrn (Not Detect) Ur Amphetamines Screen (Not Detect) U Benzodiazepines Scrn (Not Detect) Urine Cocaine Screen (Not Detect) U Marijuana (THC) Screen (Not Detect) COVID-19 (JENNIFER) (Negative) COVID-19 Clin Com <Radha Marte MD - Last Filed: 01/10/23 08:32> Independent Historian Clinical information obtained from an independent historian. History obtained from or confirmed by: EMS <Betsy Mayberry CNP - Last Filed: 01/09/23 21:08> External Record Review External record reviewed: Outpatient record <Betsy Mayberry CNP - Last Filed: 01/09/23 21:08> Prescription Management I considered prescription management with: Antibiotic <Betsy Mayberry CNP - Last Filed: 01/09/23 21:08> Discharge Plan Discharge Clinical Impression: Cellulitis, Substance use disorder, Bipolar disorder, Hallucinations <Betsy Mayberry CNP - Last Filed: 01/09/23 21:08> Patient Disposition: Still a Patient <Betsy Mayberry CNP - Last Filed: 01/09/23 21:08> Prescriptions: No Action methadone 30 mg 30 mg PO DAILY <Betsy Mayberry CNP - Last Filed: 01/09/23 21:08> Interventions: Kincaid-Suicide Risk Severity Scale Last Done: 01/10/23 05:50 <Betsy Mayberry CNP - Last Filed: 01/09/23 21:08>
[2023-01-09 15:27] LABS: COVID-19 Test Negative (Negative); IDNOW Serial# 55D5AD1C
--- NOTE | 2023-01-09 15:36 | MHC.EDTECH ---
Pt hard stick, did not feel comfortable drawing could not find a usable vein to draw from. Other techs will try to draw.
--- NOTE | 2023-01-09 16:26 | MHC.CARE ---
CARE Team spoke with Nidia who reported Pt is bedsearch.
[2023-01-09] MEDS: Doxycycline Monohydrate 100 MG CAPSULE PO (16:37)
[2023-01-09] MEDS: cephALEXin 500 MG CAPSULE PO ×2 (16:37→20:30)
[2023-01-09 16:47] LABS: Lactic Acid 0.9 mmol/L (0.5-2.0)
[2023-01-09 16:59] LABS: Alanine Aminotransferase 17 U/L (0-31); Albumin Level 3.8 g/dL (3.5-5.0); Alkaline Phosphatase 204 U/L (39-117); Anion Gap 14 (12-20); Aspartate Amino Transferase 19 U/L (5-31); Bilirubin Total 0.3 mg/dL (0.0-1.0); Blood Urea Nitrogen 9 mg/dL (9-16); Calcium 9.2 mg/dL (8.4-10.2); Carbon Dioxide 30 mmol/L (22-29); Chloride 101 mmol/L (96-108); Creatinine Clr Calc Pharmacy 106.9; Estimated Glomerular Filt Rate > 60; Glucose Random 80 mg/dL (60-115); Potassium 4.7 mmol/L (3.3-5.1); Sodium 140 mmol/L (135-145); Total Protein 7.8 g/dL (6.5-8.0)
--- NOTE | 2023-01-09 17:42 | HE.PHANOTE ---
Methadone Maintenance [facility] Verification Form : [facility] ( ).Last dose was on 01/09/23 @1014.
[2023-01-09 20:21] VITALS: BP 129/74; PULSE 79; RESP 18; TEMP 36.2; O2SAT 99
[2023-01-09 20:55] LABS: Hematocrit 30.1 % (37.0-47.0); Hemoglobin 10.3 g/dl (12.0-16.0); Mean Corpuscular HGB Conc 34.2 g/dl (31.0-35.0); Mean Corpuscular Hemoglobin 27.6 pg (27.0-33.0); Mean Corpuscular Volume 80.7 fL (80.0-98.0); Mean Platelet Volume 8.2 fL (9.4-12.3); NRBC Pct Auto 0.7 /100WBC (0.0-0.2); Platelet Count 301 X10*3/uL (160-400); Red Blood Count 3.73 X10*6/uL (4.20-5.50); Red Cell Distribution Width 13.2 % (11.0-16.0); White Blood Count 7.4 X10*3/uL (4.8-10.8)
[2023-01-09 21:28] LABS: Neutrophils Percent Auto 63.5 % (45-73)
[2023-01-09 21:29] LABS: Eosinophils Absolute Auto 0.2 X10*3/uL (0.0-0.4); Eosinophils Percent Auto 2.7 % (0-4); Monocytes Absolute Auto 0.8 X10*3/uL (0.1-1.2); Monocytes Percent Auto 8.6 % (2-11); Neutrophils Absolute Auto 5.6 x10*3/uL (2.0-8.3)
[2023-01-09 21:30] LABS: MANUAL DIFF FLAG NO
--- NOTE | 2023-01-10 | ECG_ITS ---
Test Reason : COCAINE USE Blood Pressure : / mmHG Vent. Rate : 077 BPM Atrial Rate : 077 BPM P-R Int : 152 ms QRS Dur : 076 ms QT Int : 414 ms P-R-T Axes : 043 013 021 degrees QTc Int : 468 ms Normal sinus rhythm Normal ECG When compared with ECG of 15-MAR-2017 20:43, No significant change was found Referred By: Radha Marte Electronically Signed By:DIANE LAZAR MD
[2023-01-10 06:01] VITALS: BP 120/61; PULSE 86; RESP 16; TEMP 36.4; O2SAT 96
--- NOTE | 2023-01-10 06:04 | PC.NURSE ---
Patient slept through the night, no distress observed/reported, ceftin 500 mg QID and doxy 100 mg BID ordered for cellulites for bilateral arm, medication compliant, disposition per [facility] is section 12 inpatient bed search, behavior non concerning, VSS, will continue to monitor.
--- NOTE | 2023-01-10 07:10 | PC.NURSE ---
patient appears to remain asleep at present respirations are even and unlabored patient appears in no distress
[2023-01-10] MEDS: methADONE HCl 20 MG/2 ML ORAL.CONC 30 MG PO (09:22)
[2023-01-10] MEDS: cephALEXin 500 MG CAPSULE PO ×4 (09:23→22:05)
[2023-01-10] MEDS: Doxycycline Monohydrate 100 MG CAPSULE PO ×2 (09:23→22:05)
--- NOTE | 2023-01-10 16:47 | PC.NURSE ---
Patient was sleeping woke up with verbal stimuli. Patient denies any pain. Report given to Obdulio JORGE. On his way down to get her to transfer to [facility].
--- NOTE | 2023-01-10 17:54 | PC.NURSE ---
Obdulio JORGE just took patient upstairs to [facility] with security.
[2023-01-10 17:55] VITALS: BP 131/87; PULSE 79; TEMP 36.4
[2023-01-10] MEDS: cloNIDine HCL 0.1 MG TABLET PO (22:03)
--- NOTE | 2023-01-10 22:03 | PC.NURSE ---
Pt submitted a Three Day Notice on Thursday01/10/2023 up on Thursday01/14/2023.
[2023-01-10] MEDS: LORazepam 1 MG TABLET PO (22:06)
[2023-01-10] MEDS: Acetaminophen 325 MG TABLET 650 MG PO (22:06)
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
[2023-01-11 08:25] VITALS: BP 117/78; PULSE 99; RESP 16; TEMP 36.7; O2SAT 94
[2023-01-11] MEDS: methADONE HCl 20 MG/2 ML ORAL.CONC 30 MG PO (08:26)
[2023-01-11] MEDS: cephALEXin 500 MG CAPSULE PO ×4 (08:26→22:14)
[2023-01-11] MEDS: Doxycycline Monohydrate 100 MG CAPSULE PO ×2 (08:26→22:15)
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
--- NOTE | 2023-01-11 12:09 | PC.NURSE ---
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 People thinks its fake, but there are hairs and fibers under my skin . wounds were covered with tubing netting and provider made aware.
[2023-01-11] MEDS: methADONE HCl 20 MG/2 ML ORAL.CONC 10 MG PO (13:53)
[2023-01-11] MEDS: Nicotine Polacrilex 2 MG GUM BUCCAL (15:16)
[2023-01-11 22:00] VITALS: BP 164/82; PULSE 86; TEMP 36.7
[2023-01-11] MEDS: cloNIDine HCL 0.1 MG TABLET PO (22:22)
[2023-01-11] MEDS: Acetaminophen 325 MG TABLET 650 MG PO (22:23)
[2023-01-11] MEDS: hydrOXYzine HCL 25 MG TABLET PO (22:23)
[2023-01-12] MEDS: LORazepam 1 MG TABLET PO (00:06)
[2023-01-12 06:00] VITALS: BP 101/59; PULSE 61; RESP 14; TEMP 35.6; O2SAT 98
[2023-01-12] MEDS: Nicotine 21 MG PATCH.TD24 TRANSDERMA (09:07)
[2023-01-12] MEDS: methADONE HCl 20 MG/2 ML ORAL.CONC 40 MG PO (09:08)
[2023-01-12] MEDS: Doxycycline Monohydrate 100 MG CAPSULE PO ×2 (09:08→21:45)
[2023-01-12] MEDS: cephALEXin 500 MG CAPSULE PO ×4 (09:08→21:45)
[2023-01-12] MEDS: cloNIDine HCL 0.1 MG TABLET PO ×2 (09:46→21:46)
--- NOTE | 2023-01-12 11:14 | MHC.RECOVRN ---
Spoke with provider after consult placed to Addiction Medicine. Pt receiving 30 mg methadone daily and had been using substances as well. Pt reporting withdrawal symptoms and requesting increase in methadone dose. After discussing with Chana Ortega APRN, plan to increase methadone to 40 mg.
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
--- NOTE | 2023-01-12 17:19 | P.PNPSI_ITS ---
Subjective Subjective Date of Service: 01/12/23 Reason For Visit: manic/off medications/substance use Subjective Notes: 3 Day Healthcare Proxy: No Guardianship: No Medical Problems Affecting Mental Status: No Interim History: Julio discussed sx of AH, VH due to Morgellons Disease. Significant wounds on both arms. Discussed hx of use of Oxcarbazepine. Discussed atypical use for sx of perceptual alterations. Medication Compliance: Yes Side effects from medications: No Attending Groups: No Review of Systems Acute medical concerns: No Medical Review of Systems: unchanged Mental Status Exam Mental Status Exam Patient Appearance: Fatigued Patient Orientation: Person, Place, Time and Situation Level of Consciousness: Alert Patient Behavior: Talkative and Good Eye Contact Mood Description: Flat Affect Description: Flat Patient Cognition Impaired: No Ability to Follow Directions: Good Speech Pattern: Spontaneous Speech and Soft-Spoken Memory Description: Intact Hallucinations: Auditory, Visual and Tactile Perceptual Disturbances: Depersonalization and Derealization Thought Process: Intact and Distracted Thought Content: positive for [place] and positive for Circumstantial Depressive Symptoms: Increased Anxiety Abnormal Motor Activity Signs and Symptoms: Restlessness Judgement: Good Diagnostics Vital Signs (24Hr): Vital Signs - 24 hr 01/11/23 22:00 01/12/23 06:00 Temperature 98.0 F 96.1 F L Pulse Rate 86 61 Respiratory Rate 14 Blood Pressure 164/82 H 101/59 L Pulse Oximetry 98 Oxygen Delivery Method Room Air BMI result Body Mass Index 25.8 Labs 01/09/23 20:26 01/09/23 16:26 Medications Medications Current Medications Acetaminophen (Acetaminophen 325 Mg Tablet) 650 mg PO Q6H PRN PRN Reason: Headache/Pain Mild Scale (1-3) Last Admin: 01/11/23 22:23 Dose: 650 mg Al Hydroxide/Mg Hydroxide (Magnesium Hydrox/Alum Hydrox 30 Ml Oral.Susp) 30 ml PO Q6H PRN PRN Reason: Heartburn/Nausea Cephalexin HCl (Cephalexin 500 Mg Capsule) 500 mg PO QID [facility] Last Admin: 01/12/23 13:02 Dose: 500 mg Clonidine HCl (Clonidine Hcl 0.1 Mg Tablet) 0.1 mg PO BID PRN; Protocol PRN Reason: Opiate withdrawal Last Admin: 01/12/23 09:46 Dose: 0.1 mg Doxycycline Monohydrate (Doxycycline Monohydrate 100 Mg Capsule) 100 mg PO BID [facility] Last Admin: 01/12/23 09:08 Dose: 100 mg Hydroxyzine HCl (Hydroxyzine Hcl 25 Mg Tablet) 25 mg PO Q6H PRN PRN Reason: Anxiety Last Admin: 01/11/23 22:23 Dose: 25 mg Magnesium Hydroxide (Milk Of Magnesia 30 Ml Oral.Susp) 30 ml PO DAILY PRN PRN Reason: Constipation Methadone HCl (Methadone Hcl 20 Mg/2 Ml Oral.Conc) 55 mg PO DAILY [facility] Nicotine (Nicotine 21 Mg Patch.Td24) 21 mg TRANSDERMA DAILY [facility] Last Admin: 01/12/23 09:07 Dose: 21 mg Nicotine Polacrilex (Nicotine Polacrilex 2 Mg Gum) 2 mg BUCCAL Q2H PRN PRN Reason: Nicotine Cravings Last Admin: 01/11/23 15:16 Dose: 2 mg Oxcarbazepine (Oxcarbazepine 300 Mg Tablet) 300 mg PO BID [facility] Trazodone HCl (Trazodone Hcl 50 Mg Tablet) 50 mg PO BEDTIME MRX1 PRN PRN Reason: Insomnia Ziprasidone (Ziprasidone 40 Mg Capsule) 40 mg PO DAILY@1900 [facility] Allergies Allergies Allergy/AdvReac Type Severity Reaction Status Date / Time Penicillins [PENICILLINS] Allergy Intermediate HIVES Verified 04/11/21 21:30 penicillin V Allergy Unknown rash Verified 04/11/21 21:30 sulfamethoxazole Allergy Unknown VOMITING Verified 04/11/21 21:30 [From BACTRIM] trimethoprim [From BACTRIM] Allergy Unknown VOMITING Verified 04/11/21 21:30 Assessment & Plan Assessment & Plan (1) Opioid use disorder: Status: Acute Code(s): F11.90 - Opioid use, unspecified, uncomplicated Assessment and Plan: * methadone 10mg now (total of 50mg today) * methadone 55mg in AM * will follow up later this week (2) Mood disorder: Status: Acute Code(s): F39 - Unspecified mood [affective] disorder Plan 01/12/23 Geodon 20 mg HS Trileptal 300 mg bid Wound consult- Morgellens syndrome. Patient educated on: medication risk/benefits and therapeutic strategies Informed Consent: understands and further education needed Reason for contiued inpatient stay Substantial Risk for: med/psych decompensation Time Spent With Patient Time: Total time managing care of this patient today 25 minutes.
[2023-01-12] MEDS: methADONE HCl 20 MG/2 ML ORAL.CONC 10 MG PO (17:30)
[2023-01-12] MEDS: Ziprasidone 40 MG CAPSULE PO (19:21)
[2023-01-12 21:45] VITALS: BP 118/70; PULSE 85; TEMP 36.4
[2023-01-12] MEDS: traZODone HCL 50 MG TABLET PO (21:45)
[2023-01-12] MEDS: OXcarbazepine 300 MG TABLET PO (21:45)
[2023-01-12] MEDS: hydrOXYzine HCL 25 MG TABLET PO (21:46)
[2023-01-13] MEDS: cephALEXin 500 MG CAPSULE PO ×4 (08:30→20:08)
[2023-01-13] MEDS: OXcarbazepine 300 MG TABLET PO ×2 (08:30→20:08)
[2023-01-13] MEDS: Nicotine 21 MG PATCH.TD24 TRANSDERMA (08:31)
[2023-01-13] MEDS: methADONE HCl 20 MG/2 ML ORAL.CONC 55 MG PO (08:31)
[2023-01-13] MEDS: Doxycycline Monohydrate 100 MG CAPSULE PO ×2 (08:31→20:08)
[2023-01-13 08:36] VITALS: BP 113/73; PULSE 70; RESP 17; TEMP 36.8; O2SAT 98
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
--- NOTE | 2023-01-13 16:44 | P.PNPSI_ITS ---
Subjective Subjective Date of Service: 01/13/23 Reason For Visit: manic/off medications/substance use Subjective Notes: 3 Day Interim History: Preparation for discharge. Review of medications, discharge plans, aftercare and follow up plans. Pt reports that this admission has been useful. Medications are tolerated and effective. She plans follow up and to continue with out patient care. Medication Compliance: Yes Side effects from medications: No Attending Groups: Intermittent Review of Systems Acute medical concerns: No Medical Review of Systems: unchanged Mental Status Exam Mental Status Exam Patient Appearance: Fatigued Patient Orientation: Person, Place, Time and Situation Level of Consciousness: Alert Patient Behavior: Talkative and Good Eye Contact Mood Description: Flat Affect Description: Flat Patient Cognition Impaired: No Ability to Follow Directions: Good Speech Pattern: Spontaneous Speech and Soft-Spoken Memory Description: Intact Hallucinations: Auditory, Visual and Tactile Perceptual Disturbances: Depersonalization and Derealization Thought Process: Intact and Distracted Thought Content: positive for [place] and positive for Circumstantial Depressive Symptoms: Increased Anxiety Abnormal Motor Activity Signs and Symptoms: Restlessness Judgement: Good Diagnostics Vital Signs (24Hr): Vital Signs - 24 hr 01/12/23 21:45 01/13/23 08:36 Temperature 97.5 F 98.3 F Pulse Rate 85 70 Respiratory Rate 17 Blood Pressure 118/70 113/73 Pulse Oximetry 98 Oxygen Delivery Method Room Air BMI result Body Mass Index 25.8 Labs 01/09/23 20:26 01/09/23 16:26 Medications Medications Current Medications Acetaminophen (Acetaminophen 325 Mg Tablet) 650 mg PO Q6H PRN PRN Reason: Headache/Pain Mild Scale (1-3) Last Admin: 01/11/23 22:23 Dose: 650 mg Al Hydroxide/Mg Hydroxide (Magnesium Hydrox/Alum Hydrox 30 Ml Oral.Susp) 30 ml PO Q6H PRN PRN Reason: Heartburn/Nausea Cephalexin HCl (Cephalexin 500 Mg Capsule) 500 mg PO QID [facility] Last Admin: 01/13/23 12:29 Dose: 500 mg Clonidine HCl (Clonidine Hcl 0.1 Mg Tablet) 0.1 mg PO BID PRN; Protocol PRN Reason: Opiate withdrawal Last Admin: 01/12/23 21:46 Dose: 0.1 mg Doxycycline Monohydrate (Doxycycline Monohydrate 100 Mg Capsule) 100 mg PO BID [facility] Last Admin: 01/13/23 08:31 Dose: 100 mg Hydroxyzine HCl (Hydroxyzine Hcl 25 Mg Tablet) 25 mg PO Q6H PRN PRN Reason: Anxiety Last Admin: 01/12/23 21:46 Dose: 25 mg Magnesium Hydroxide (Milk Of Magnesia 30 Ml Oral.Susp) 30 ml PO DAILY PRN PRN Reason: Constipation Methadone HCl (Methadone Hcl 20 Mg/2 Ml Oral.Conc) 55 mg PO DAILY [facility] Last Admin: 01/13/23 08:31 Dose: 55 mg Nicotine (Nicotine 21 Mg Patch.Td24) 21 mg TRANSDERMA DAILY [facility] Last Admin: 01/13/23 08:31 Dose: 21 mg Nicotine Polacrilex (Nicotine Polacrilex 2 Mg Gum) 2 mg BUCCAL Q2H PRN PRN Reason: Nicotine Cravings Last Admin: 01/11/23 15:16 Dose: 2 mg Oxcarbazepine (Oxcarbazepine 300 Mg Tablet) 300 mg PO BID [facility] Last Admin: 01/13/23 08:30 Dose: 300 mg Trazodone HCl (Trazodone Hcl 50 Mg Tablet) 50 mg PO BEDTIME MRX1 PRN PRN Reason: Insomnia Last Admin: 01/12/23 21:45 Dose: 50 mg Ziprasidone (Ziprasidone 40 Mg Capsule) 40 mg PO DAILY@1900 [facility] Last Admin: 01/12/23 19:21 Dose: 40 mg Allergies Allergies Allergy/AdvReac Type Severity Reaction Status Date / Time Penicillins [PENICILLINS] Allergy Intermediate HIVES Verified 04/11/21 21:30 penicillin V Allergy Unknown rash Verified 04/11/21 21:30 sulfamethoxazole Allergy Unknown VOMITING Verified 04/11/21 21:30 [From BACTRIM] trimethoprim [From BACTRIM] Allergy Unknown VOMITING Verified 04/11/21 21:30 Assessment & Plan Assessment & Plan (1) Mood disorder: Status: Acute Code(s): F39 - Unspecified mood [affective] disorder (2) Opioid use disorder: Status: Acute Code(s): F11.90 - Opioid use, unspecified, uncomplicated Plan 01/13/23: Discharge planned for 01/14/23 via pt's three day notice of intent. She is tolerating Trileptal and Geodon and is finding these helpful for management of symptoms. Patient educated on: medication risk/benefits and therapeutic strategies Informed Consent: understands Reason for contiued inpatient stay Substantial Risk for: rapid decompensation Time Spent With Patient Time: Total time managing care of this patient today 20 minutes.
[2023-01-13] MEDS: Ziprasidone 40 MG CAPSULE PO (17:58)
[2023-01-13 18:00] VITALS: BP 144/82; PULSE 92; TEMP 37; O2SAT 96
--- NOTE | 2023-01-13 22:10 | PC.NURSE ---
pt is currently sleeping, dressing change not performed.
[2023-01-14 08:08] VITALS: BP 140/88; PULSE 79; RESP 16; TEMP 36.4; O2SAT 94
[2023-01-14] MEDS: Doxycycline Monohydrate 100 MG CAPSULE PO (08:29)
[2023-01-14] MEDS: methADONE HCl 20 MG/2 ML ORAL.CONC 55 MG PO (08:29)
[2023-01-14] MEDS: OXcarbazepine 300 MG TABLET PO (08:29)
[2023-01-14] MEDS: cephALEXin 500 MG CAPSULE PO (08:29)
[2023-01-14] MEDS: Zinc Oxide 20% Ointment 28.35 GM TUBE 1 APPL TOPICAL (09:02)
[2023-01-14] MEDS: Ondansetron ODT 4 MG TAB.RAPDIS TRANSLINGU (09:51)
--- NOTE | 2023-01-14 10:57 | PC.NURSE ---
dressing change performed per order
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
== END 2023-01-14 11:01 | disposition home or self-care (01) | DRG 753 ==
LOC: HO.ED 01-10 16:41 → HO.PM5 01-10 17:36
PROVIDERS: Emergency Medicine Emergency Medical Services; Nurse Practitioner Family; Admitting Provider Psychiatry & Neurology Psychiatry; Emergency Provider Emergency Medicine; Visit Provider Clinical Nurse Specialist Psychiatric/Mental Health, Adult
DX: F31.9 Bipolar disorder, unspecified (principal); F11.20 Opioid dependence, uncomplicated; F17.210 Nicotine dependence, cigarettes, uncomplicated; M24.522 Contracture, left elbow; L98.8 Other specified disorders of the skin and subcutaneous tissue; F54 Psychological and behavioral factors associated with disorders or diseases classified elsewhere; M24.521 Contracture, right elbow; Z20.822 Contact with and (suspected) exposure to COVID-19; Z71.6 Tobacco abuse counseling; Z88.0 Allergy status to penicillin; Z88.2 Allergy status to sulfonamides; Z79.899 Other long term (current) drug therapy
CPT/HCPCS: 36415; 80053; 80307; 83605; 85025; 87040; 87635; 93005; 99285